=== PATIENT | male | born 1970 | race Caucasian/White ===

== ENCOUNTER 2023-11-27 23:01 | Emergency (ER) | payer OTHER, SELFPAY ==
[2023-11-27 23:49] VITALS: BP 142/95; PULSE 62; RESP 15; TEMP 36.6; O2SAT 96; BMI 38.0
--- NOTE | 2023-11-27 23:52 | ED.GENADULT ---
HPI - General Adult General Chief complaint: Blood/Body fluid exposure Stated complaint: s/p meningitis exposure Time Seen by Provider: 11/27/23 23:48 Source: patient Mode of arrival: Ambulatory Limitations: no limitations History of Present Illness HPI narrative: 53-year-old male presents with complaint of exposure to patient with meningitis presents for request for prophylaxis. No known drug allergies. Related Data Home Medications Medication Instructions Recorded Confirmed MULTIVITAMIN (#MULTIPLE VITAMINS) 1 cap PO Q DAY ##0 02/10/12 Allergies Allergy/AdvReac Type Severity Reaction Status Date / Time No Known Drug Allergies Allergy Verified 11/27/23 23:48 Review of Systems Review of Systems ROS Unobtainable: All systems reviewed & are unremarkable except as noted in HPI and below Patient History Social History Smoking Status: Former smoker Smoking Status: Former smoker alcohol intake frequency: holidays/special occasions only Substance Use Type: does not use Exam Narrative Exam Narrative: GENERAL: Alert and oriented x three, male in no acute distress. HEENT: Head normocephalic, atraumatic, EOMI, pupils reactive, face symmetric, moist mucous membranes NECK: Supple, full range of motion CARDIOVASCULAR: Regular rate and rhythm without murmurs, rubs or gallops. RESPIRATORY: Breath sounds equal bilaterally, no wheezes rales or rhonchi. ABDOMEN: Soft, nontender. Normoactive bowel sounds all 4 quadrants. No guarding or rebound, rigidity, no mass EXTREMITIES: Normal range of motion, no clubbing or edema. Neurovascularly intact NEUROLOGICAL: Cranial nerves II through XII grossly intact. Moving all extremities SKIN: Warm, dry, no petechiae, no rashes or lesions. Initial Vital Signs Initial Vital Signs: Vital Signs Temperature 98 F 11/27/23 23:49 Pulse Rate 62 11/27/23 23:49 Respiratory Rate 15 11/27/23 23:49 Blood Pressure 142/95 H 11/27/23 23:49 Pulse Oximetry 96 11/27/23 23:49 Oxygen Delivery Method Room Air 11/27/23 23:49 Course Orders Ordered: Discontinued Medications Ciprofloxacin (Ciprofloxacin 250 Mg Tablet) 500 mg PO NOW ONE Stop: 11/27/23 23:49 Last Admin: 11/28/23 00:12 Dose: 500 mg Documented By: [facility]NG Vital Signs Vital signs: Vital Signs - 8 hr 11/27/23 23:49 11/28/23 00:19 Temperature 98 F 98.2 F Pulse Rate 62 63 Respiratory Rate 15 16 Blood Pressure 142/95 H 129/82 Pulse Oximetry 96 99 Oxygen Delivery Method Room Air Room Air Medical Decision Making MDM Narrative Medical decision making narrative: Patient was given prophylactic dose of ciprofloxacin 500 mg x 1 for exposure to individual with meningitis. Patient was assisting with transport patient to the hospital this occurred earlier today. Discharge Plan Departure Patient Disposition: Home Clinical Impression: Exposure to meningitis Activity Restrictions/Additional Instructions: You have received a dose of ciprofloxacin 500 mg as prophylaxis for exposure to an individual with meningitis. Please return if you have any other new or concerning symptoms. Prescriptions: No Action MULTIVITAMIN (#MULTIPLE VITAMINS) 1 cap PO Q DAY Qty: 0 Referrals: Kirill Patel MD [Primary Care Provider] - Stand Alone Forms: Patient Portal/API
[2023-11-28] MEDS: CIPROFLOXACIN 250 MG TABLET 500 MG PO (00:12)
[2023-11-28 00:19] VITALS: BP 129/82; PULSE 63; RESP 16; TEMP 36.8; O2SAT 99
== END 2023-11-28 00:20 | disposition home or self-care (01) ==
PROVIDERS: Emergency Provider Emergency Medicine; Family Provider Internal Medicine; PCP Internal Medicine
DX: Z20.818 Contact with and (suspected) exposure to other bacterial communicable diseases (principal); Y99.0 Civilian activity done for income or pay
CPT/HCPCS: 99282; 99283